=== PATIENT | female | born 1960 | race Caucasian/White ===

== ENCOUNTER → 2019-01-01 | Outpatient (CLI) | payer OTHER | END | disposition home or self-care (01) | LOC: RADMRIMAIN 07:15 | PROVIDERS: ATTEND Orthopaedic Surgery | DX: Z53.9 Procedure and treatment not carried out, unspecified reason (principal) ==

== ENCOUNTER → 2020-10-04 | Outpatient (CLI) | payer OTHER ==
--- NOTE | 2020-10-04 12:04 | US ---
EXAMINATION TYPE: US thyroid st tissue head/neck DATE OF EXAM: 10/04/2020 COMPARISON: 07/07/2016 CLINICAL HISTORY: 60-year-old female E04.2 Nontoxic multinodular goiter. Partial thyroidectomy, howev er, patient is unable to remember which side; c/o difficulty breathing. TECHNIQUE: Multiple sonographic images of the thyroid gland are obtained. FINDINGS: GLAND SIZE: Right Lobe: 4.9 x 1.9 x 1.1 cm Overall Parenchyma: heterogenous Left Lobe: 3.6 x 1.3 x 0.8 cm Overall Parenchyma: heterogeneous Isthmus Thickness: 0.1 cm NODULES RIGHT: # of nodules measured on right: 3 largest of multiple 1. 1.2 X 0.7 x 0.7 cm, TR3 upper mid, solid or almost completely solid, isoechoic nodule, which is wide as is tall, with ill-defined margins, without echogenic foci. ( No previous) 2. 0.7 X 0.8 x 0.4 cm, midpole, mixed cystic and solid, hypoechoic nodule, which is wider than tall , with smooth margins, without echogenic foci. (No previous) 3. 1.5 X 1.4 x 1.5 cm, TR 4 lower pole, primarily solid, heterogeneous hypoechoic nodule, which is as wide as it is tall, with ill-defined margins, without echogenic foci. (No previous) LEFT: # of nodules measured on left: 1 1. 1.2 X 0.8 x 0.7 cm, TR 4 mid pole, solid or almost completely solid, hypoechoic nodule, which is wider than tall, with smooth margins, without echogenic foci. Prior size: 0.9 x 0.8 x 0.7 cm ISTHMUS: # of nodules measured in the isthmus: 0 Bilateral neck scanned; inferior to left thyroid is hyperechoic solid oval nodule = 0.7 x 0.6 x 0.4cm . Possible benign lymph node with prominent fatty hilum IMPRESSION: 1. A 1.5 cm TR 4 nodule not previously seen in the right lower lobe for which FNA can be considered. 2. A 1.2 cm TR 4 nodule in the left midpole increased from 9 mm can continue to be followed. FNA if i t reaches 1.5 cm. 3. A 1.2 cm TR 3 nodule in the right upper pole not seen previously can be reassessed at follow-up.
== END | disposition home or self-care (01) ==
LOC: RADUSWWP 10:59
PROVIDERS: ATTEND Internal Medicine Endocrinology, Diabetes & Metabolism
DX: E04.2 Nontoxic multinodular goiter (principal)
CPT/HCPCS: 76536; 84443

== ENCOUNTER 2020-11-03 12:47 | Day surgery (SDC) | payer OTHER ==
[2020-11-03 13:19] VITALS: RESP 16; TEMP 98
[2020-11-03 14:29] VITALS: BP 117/69; PULSE 68
--- NOTE | 2020-11-03 14:38 | US ---
ULTRASOUND GUIDED FNA THYROID BIOPSY: CLINICAL HISTORY: Request for 1.5 cm right thyroid nodule FINDINGS: The procedure was explained to the patient. The risks, complications, benefits and alternatives were discussed and any questions were answered. Informed consent was obtained. Patient was placed supin e on the ultrasound table and prepped and draped in the usual sterile fashion. Utilizing a 25 gauge needle, five passes were made into the requested 1.5 cm right thyroid nodule. Patient was stable throughout the procedure. Pathology is pending. All elements of maximal barrier technique were utilized. IMPRESSION: 1. Successful ultrasound guided FNA thyroid biopsy.
== END 2020-11-03 14:27 | disposition home or self-care (01) ==
LOC: RADPROMAIN 12:47
PROVIDERS: ATTEND Internal Medicine Endocrinology, Diabetes & Metabolism
DX: E04.1 Nontoxic single thyroid nodule (principal)
CPT/HCPCS: 10005; 88173; 88305